=== PATIENT | male | born 1995 | race Caucasian/White ===

== ENCOUNTER 2022-02-02 11:10 | Emergency (ER) | payer BC, OTHER | END 2022-02-02 12:10 | disposition home or self-care (01) | LOC: FB.ED 11:10 | DX: K08.89 Other specified disorders of teeth and supporting structures (principal); Z91.018 Allergy to other foods; Z79.899 Other long term (current) drug therapy | CPT/HCPCS: 99282 ==

== ENCOUNTER 2022-05-21 02:56 | Emergency (ER) | payer BC ==
[2022-05-21] MEDS ORDERED: Amoxicillin 500 MG Cap PO ONE (02:57)
[2022-05-21] MEDS ORDERED: Acetaminophen/Codeine 300-30 MG Tab PO ONE (02:57)
== END 2022-05-21 03:30 | disposition home or self-care (01) ==
LOC: FB.ED 02:56
DX: K08.89 Other specified disorders of teeth and supporting structures (principal); Z91.018 Allergy to other foods
CPT/HCPCS: 99282; A9270-GY

== ENCOUNTER 2025-03-28 03:04 | Emergency (ER) | payer SELFPAY ==
[2025-03-28] MEDS: methylPREDNISolone Sodium Succinate 125 MG/2 ML SDV IM ONE (03:50)
== END 2025-03-28 04:25 | disposition home or self-care (01) ==
LOC: FB.ED 03:04
DX: U07.0 Vaping-related disorder (principal); F17.200 Nicotine dependence, unspecified, uncomplicated; Z91.018 Allergy to other foods; Z86.16 Personal history of COVID-19
CPT/HCPCS: 94640; 96372; 99283; J2919; J7620; 99284; A9270-GY